=== PATIENT | female | born 1995 | race Asian ===

== ENCOUNTER → 2016-09-08 | Outpatient (CLI) | payer OTHER | END | disposition home or self-care (01) | LOC: CFH 11:18 | PROVIDERS: ATTEND Nurse Practitioner | DX: N63 Unspecified lump in breast (principal) ==

== ENCOUNTER 2020-08-27 10:55 | Emergency (ER) | payer OTHER ==
[~2020-08-27] VITALS: Ht 154.9 cm; Wt 67.0 kg
--- NOTE | 2020-08-27 11:29 | NUR ---
PT TENDER TO RLQ WITH RADIATION OF PAIN TO R FLANK. URINE COLLECTED/SENT TO LAB. EMT STUDENT IN WITH ED EMT TO START IV AND DRAW LABS. PT UPDATED ON POC, NEED TO STAY NPO. LAST ATE YESTERDAY JARON 1899. PT DECLINING PAIN OR NAUSEA MEDS AT THIS TIME.
[2020-08-27] MEDS ORDERED: SODIUM CHLORIDE 0.9% 1,000ML IVBOLUS ONE (11:30)
[2020-08-27 11:43] LABS: MICROSCOPIC NOT IND
[2020-08-27 11:58] LABS: MEAN CORPUSCULAR HEMOGLOBIN 29.7 pg (27.0-34.8); MEAN CORPUSCULAR HGB CONC 33.4 g/dL (32.4-35.8); MEAN PLATELET VOLUME 7.9 fL (7.4-10.4); PLATELET COUNT 279 x10^3/uL (130-400); RED BLOOD COUNT 4.93 x10^6/uL (3.82-5.3); RED CELL DISTRIBUTION WIDTH 13.6 % (9.6-15.2)
[2020-08-27 12:05] LABS: ALANINE AMINOTRANSFERASE 19 U/L (12-78); ALBUMIN 3.9 g/dL (3.4-5.0); ANION GAP 6 mmol/L (5-15); CALCIUM 9.4 mg/dL (8.5-10.1); CHLORIDE 106 mmol/L (98-107); CREATININE 0.71 mg/dL (0.55-1.02)
[2020-08-27 12:09] LABS: ALKALINE PHOSPHATASE 44 U/L (45-117); BILIRUBIN,TOTAL 0.7 mg/dL (0.2-1.0)
--- NOTE | 2020-08-27 12:17 | NUR ---
ALL LAB RESULTS BACK, PT FOR RECHECK.
[2020-08-27 12:24] LABS: MD YES
[2020-08-27 12:26] LABS: BAND#(MANUAL) 0.38 x10^3/uL; BANDS%(MANUAL) 2 % (0-7); EOS#(MANUAL) 0.19 x10^3/uL (0.0-0.4); EOS% (MANUAL) 1 % (1-7); LYMPH#(MANUAL) 0.57 x10^3/uL (1-3.4); LYMPHS% (MANUAL) 3 % (22-44); MONOS#(MANUAL) 0.96 x10^3/uL (0.3-2.7); MONOS% (MANUAL) 5 % (2-9); REACTIVE LYMPHS # (MANUAL) 0.38 x10^3/uL (0-0); REACTIVE LYMPHS % (MANUAL) 2 % (0-0); SEG#(MANUAL) 16.62 x10^3/uL (1.8-6.8); SEGS% (MANUAL) 87 % (42-75)
[2020-08-27 12:27] LABS: <PLATELET ESTIMATE> ADEQUATE; <PLT MORPHOLOGY> NORMAL PLT MORPH; <RBC MORPHOLOGY> NORMAL; PMNS WITH VACUOLES 1+
--- NOTE | 2020-08-27 13:02 | NUR ---
PT AMBULATORY TO BR. AN AT BS.
--- NOTE | 2020-08-27 13:28 | NUR ---
US RESULTS BACK, PT FOR RECHECK.
--- NOTE | 2020-08-27 13:37 | NUR ---
ADD ON ORDER FOR CT.
--- NOTE | 2020-08-27 13:46 | NUR ---
PT TO CT.
[2020-08-27] MEDS ORDERED: CHLORHEXIDINE 15 ML UDC ONE (14:08)
[2020-08-27] MEDS ORDERED: OMNIPAQUE 350 MG/ML, 100ML BOTTLE ONE (14:10)
--- NOTE | 2020-08-27 14:19 | NUR ---
PT PREPARED FOR OR. ANTIBIOTIC INFUSING PER ERP ORDER. RAPID COVID SWAB OBTAINED/WALKED TO LAB. VSS/UPDATED IN COMPUTER.
[2020-08-27] MEDS ORDERED: CEFTRIAXONE 1,000 MG in DEXTROSE 5% 50 ML IVPB ONE (14:30)
[2020-08-27] MEDS ORDERED: CHLORHEXIDINE 15 ML UDC PO ONE (14:30)
[2020-08-27] MEDS ORDERED: EPINEPHRINE 1 MG/ML, 1ML ONE (14:35)
[2020-08-27] MEDS ORDERED: BUPIVACAINE/PF 0.25% ONE (14:35)
[2020-08-27 14:49] VITALS: BP 106/71
[2020-08-27 14:57] VITALS: BP 106/71
[2020-08-27] MEDS ORDERED: [UNRECOGNIZED DRUG - OTHER] INH (15:07)
[2020-08-27] MEDS ORDERED: [UNRECOGNIZED DRUG - OTHER] PO (15:07)
[2020-08-27] MEDS ORDERED: ACET500P23 PO (15:07)
[2020-08-27] MEDS ORDERED: ventolin HFA INH (15:07)
[2020-08-27] MEDS ORDERED: MONT10TA17 PO (15:07)
[2020-08-27] MEDS ORDERED: ALLEGRA PO (15:07)
[2020-08-27] MEDS ORDERED: NORG1TAB6 PEG (15:07)
[2020-08-27] MEDS ORDERED: MIDAZOLAM 1 MG/ML, 2ML ONE (15:13)
[2020-08-27] MEDS ORDERED: FENTANYL PF 250 MCG/5ML ONE (15:14)
[2020-08-27] MEDS ORDERED: ONDANSETRON 2MG/ML, 2ML ONE (15:16)
[2020-08-27] MEDS ORDERED: PROPOFOL 10 MG/ML, 20ML ONE (15:16)
[2020-08-27] MEDS ORDERED: ROCURONIUM 10 MG/ML,10ML ONE (15:16)
[2020-08-27] MEDS ORDERED: SUCCINYLCHOLINE 20 MG/ML, 10ML ONE (15:16)
[2020-08-27] MEDS ORDERED: DEXAMETHASONE 4 MG/ML, 1ML ONE (15:16)
[2020-08-27] MEDS ORDERED: HYDR-2214 PO (15:41)
[2020-08-27] MEDS ORDERED: MEPERIDINE/PF 25MG/0.5ML IVPush PRN (16:00)
[2020-08-27] MEDS ORDERED: hydrALAzine 20 MG/ML, 1ML IV PRN (16:00)
[2020-08-27] MEDS ORDERED: LABETALOL 5MG/ML, 20ML IV PRN (16:00)
[2020-08-27] MEDS ORDERED: EPHEDRINE 50 MG/ML, 1ML IVPush PRN (16:00)
[2020-08-27] MEDS ORDERED: PROMETHAZINE 25 MG/ML, 1ML IVPush PRN (16:00)
[2020-08-27] MEDS ORDERED: OXYcodone 5 MG/5 ML ORAL.SOL UDC PO PRN (16:00)
[2020-08-27] MEDS ORDERED: ACETAMINOPHEN 325 MG TABLET PO PRN (16:00)
[2020-08-27] MEDS ORDERED: ONDANSETRON 2MG/ML, 2ML IVPush PRN (16:00)
[2020-08-27] MEDS ORDERED: FENTANYL PF 100 MCG/2ML IV PRN (16:00)
[2020-08-27] MEDS ORDERED: METHOCARBAMOL 1,000 MG in DEXTROSE 5% 100 ML IV PRN (16:00)
[2020-08-27] MEDS ORDERED: HYDROmorphone 1 MG/ML, 1ML INJ IVPush PRN (16:00)
[2020-08-27] MEDS ORDERED: LORazepam 2 MG/ML, 1ML IVPush PRN (16:00)
[2020-08-27] MEDS ORDERED: ACETAMINOPHEN 650 MG/20.3 ML UDC ONE (16:09)
== END 2020-08-27 18:15 ==
LOC: ED 11:07
DX: K35.80 Unspecified acute appendicitis (principal); Z20.822 Contact with and (suspected) exposure to COVID-19
CPT/HCPCS: 36415; 44970; 74177; 76857; 80053; 81003; 84703; 85025; 87635; 88304; 96365; 99285; J0171; J0330; J0696; J1100; J2250; J2405; J2704; J3010; J7030; Q9967